=== PATIENT | female | born 1985 | race Caucasian/White ===

== ENCOUNTER 2021-10-18 18:01 | Inpatient (IN) | payer OTHER ==
[~2021-10-18] VITALS: Ht 165.1 cm; Wt 56.7 kg
--- NOTE | 2021-10-18 18:10 | NUR ---
BIB RA 41 C/O UPPER ABDOMINAL PAIN, NAUSEA AND DIARRHEA X 1 DAY. AAOX4, BREATHING EVEN AND UNLABORED, PULSES 2+ BILATERALLY. HANDS COLD TO TOUCH. ON MONITOR. VS STABLE.
[2021-10-18] MEDS ORDERED: PANTOPRAZOLE 40 MG VIAL ONE (18:27)
[2021-10-18] MEDS ORDERED: ONDANSETRON HCL/PF 4 MG/2 ML VIAL ONE (18:27)
[2021-10-18] MEDS ORDERED: PANTOPRAZOLE 40 MG VIAL IV ONE (18:30)
[2021-10-18] MEDS ORDERED: IV NS 0.9% 1,000 ML BAG IV ONE ×2 (18:30→20:00)
[2021-10-18] MEDS ORDERED: ONDANSETRON HCL/PF 4 MG/2 ML VIAL IVP ONE (18:30)
[2021-10-18 19:58] LABS: BASOPHILS # (AUTO) 0.1 K/uL (0.0-0.2); BASOPHILS % (AUTO) 0.6 % (0.0-2.0); EOSINOPHILS % (AUTO) 0.1 % (0.0-6.0); LYMPHOCYTES # (AUTO) 3.9 K/uL (0.8-4.8); MONOCYTES # (AUTO) 0.3 K/uL (0.1-1.30); MONOCYTES % (AUTO) 2.9 % (2.0-12.0); NEUTROPHILS # (AUTO) 5.7 K/uL (1.8-8.9); NEUTROPHILS % (AUTO) 57.4 % (43.0-81.0); PLATELET COUNT (AUTO) 121 K/uL (150-450)
[2021-10-18 20:14] LABS: RED BLOOD CELL COUNT(AUTO) 4.67 MIL/uL (4.0-5.2)
[2021-10-18 20:15] LABS: HEMATOCRIT 52 % (33-45); HEMOGLOBIN 16.8 g/dL (11.5-14.8); MEAN CORPUSCULAR HGB CONC 32 g/dl (31.0-36.0); MEAN CORPUSCULAR VOLUME 112 fL (82-100)
--- NOTE | 2021-10-18 20:20 | NUR ---
URINE COLLECTED AND SENT TO LAB
[2021-10-18 20:34] LABS: BAND % (MANUAL) 1 % (0.0-5.0); NEUTROPHILS % (MANUAL) 85 (42-76)
[2021-10-18 20:35] LABS: LYMPHOCYTES % (MANUAL) 11 % (16-48); MONOCYTES % (MANUAL) 3 % (0-11.0)
[2021-10-18 20:44] LABS: BILIRUBIN,URINE SMALL (NEGATIVE); COLOR,URINE AMBER (YELLOW); LEUKOCYTE ESTERASE ,URINE NEGATIVE (NEGATIVE); NITRITE, URINE NEGATIVE (NEGATIVE); PH,URINE 5.5 (5.0-8.0); PROTEIN,URINE 100 mg/dl (NEGATIVE); UGLUCOSE NEGATIVE (NEGATIVE)
[2021-10-18 20:52] LABS: CALCIUM, SERUM 7.1 mg/dL (8.5-10.1); CHLORIDE 91 mmol/L (98-107); CREATININE 1.5 mg/dL (0.6-1.3); GLUCOSE 224 mg/dL (74-106); SODIUM SERUM 132 mmol/L (136-145); UREA NITROGEN, BLOOD 14 mg/dL (7-18)
[2021-10-18 20:55] LABS: POTASSIUM 2.8 mmol/L (3.5-5.1)
--- NOTE | 2021-10-18 20:55 | NUR ---
CRITICAL LAB K+ 2.8, BICARB 6.0
[2021-10-18 20:57] LABS: CARBON DIOXIDE 6 mmol/L (21-32)
[2021-10-18 21:00] LABS: BACTERIA,URINE Many /HPF (None Seen); SQUAMOUS EPITHELIAL CELL,UR Few /HPF (None Seen)
[2021-10-18] MEDS ORDERED: CEFTRIAXONE 1GM BAG (ER ONLY) 50 ML IV ONE (21:18)
[2021-10-18] MEDS ORDERED: IV PREMIX D5 1/2NS + KCL 1,000 ML IV ONE ×2 (21:23→21:30)
[2021-10-18] MEDS ORDERED: CEFTRIAXONE 1GM BAG (ER ONLY) 1 GM/50 ML PIGGYBACK IV ONE (21:30)
[2021-10-18] MEDS ORDERED: SODIUM BICARBONATE SYR 100 MEQ in IV D5W 1,000 ML IV ONE (21:30)
[2021-10-18] MEDS ORDERED: SODIUM BICARBONATE SYR 50 MEQ/50 ML DISP.SYRIN ONE (21:31)
[2021-10-18] MEDS ORDERED: ZOLPIDEM TARTRATE 5 MG TABLET PO PRN (22:00)
[2021-10-18] MEDS ORDERED: MORPHINE SULFATE INJ 4 MG/ML DISP.SYRIN IV ONE (22:00)
[2021-10-18] MEDS ORDERED: MAGNESIUM HYDROXIDE 30 ML UDC PO PRN (22:00)
[2021-10-18] MEDS ORDERED: ONDANSETRON HCL/PF 4 MG/2 ML VIAL IVP PRN (22:00)
[2021-10-18] MEDS ORDERED: IV NS 0.9% 1,000 ML IV PRN (22:00)
[2021-10-18] MEDS ORDERED: HYDROCODONE/APAP 10/325MG TABLET PO PRN (22:00)
[2021-10-18] MEDS ORDERED: Z GUARD REMEDY 4 OZ OINT TP PRN (22:00)
[2021-10-18] MEDS ORDERED: MAG HYDROX/AL HYDROX/SIMETH 30 ML UDC PO PRN (22:00)
[2021-10-18 22:50] LABS: BILIRUBIN,DIRECT 1.1 mg/dL (0.0-0.2); BILIRUBIN,TOTAL 1.6 mg/dL (0.2-1.0); MAGNESIUM 1.6 mg/dL (1.8-2.4); PHOSPHORUS 5.5 mg/dL (2.5-4.9); TOTAL PROTEIN, SERUM 5.9 g/dL (6.4-8.2)
[2021-10-18] MEDS ORDERED: MORPHINE SULFATE INJ 2 MG/ML DISP.SYRIN ONE (22:58)
[2021-10-18] MEDS ORDERED: LORAZEPAM INJ 2 MG/ML VIAL IV PRN (23:00)
--- NOTE | 2021-10-18 23:29 | NUR ---
BED GIVEN 308-2
--- NOTE | 2021-10-18 23:48 | NUR ---
REPORT GIVEN TO KAMRYN
--- NOTE | 2021-10-19 00:03 | NUR ---
ROOM 326-2
[2021-10-19 00:30] VITALS: BP 94/74
--- NOTE | 2021-10-19 00:30 | NUR ---
GERMAN TUTOR NOTES PT RECEIVING SODIUM BICARB DRIP, STARTED IN ER; PT TOLERATING FLUIDS WELL; WILL CONT TO MONITOR
--- NOTE | 2021-10-19 00:30 | NUR ---
YOLK SPRAY DRIERBORING INSPECTOR NOTES PT ARRIVED TO UNIT VIA CUONG, ACCOMPANIED BY 2 ER STAFF; PT A/OX1-2, PT IS CONFUSED; BLOOD ALCOHOL LEVEL 288,PATIENT COMPLAINING OF ABDOMINAL PAIN; PT AMBULATED TO BATHROOM WITH UNSTEADY GAIT, ASSISTED TO RESTROOM; PT VITAL SIGNS TAKEN; BELONGINGS CHECKED; SKIN ASSESSMENT DONE, SKIN INTACT; PT IS POOR HISTORIAN OF MEDICAL HX D/T ALTERED MENTAL STATUS; CHARGE NURSE AWARE; PER ER, PT DOES NOT WANT COVID VAX AND UNABLE TO OBTAIN SOME INFORMATION D/T MENTAL STATUS; L FA #22G INTACT, TOLERATING IVF WELL; NO S/S OF REDNESS OR INFILTRATION; PT ORIENTED TO STAFF AND UNIT, PT FALLING ASLEEP; BUT EASILY AROUSABLE; SAFETY PRECAUTIONS IMPLEMENTED; BED LOCKED IN LOW POSITION; SIDE RAILSX3, CALL LIGHT WITHIN REACH; WILL CONT TO MONITOR. Addendum: 10/19/21 at 0231 by KIM ABBOTT RN TELE MONITOR READS SINUS TACHY 115BPM
--- NOTE | 2021-10-19 00:33 | NUR ---
PT TRANSPORTED TO ROOM 326 ON DESK PENS ASSEMBLER PER ACLS
[2021-10-19 01:00] VITALS: BP 94/74
[2021-10-19] MEDS ORDERED: Magnesium 1GM/D5W 100ML PREMIX 100 ML IV SCH ×2 (01:00→10:00)
--- NOTE | 2021-10-19 01:00 | NUR ---
MACHINE OPERATOR HOP PICKER NOTES PT DOES NOT WANT TO REMOVE CLOTHING TO CHANGE INTO PT GOWN; PT DROWSY AND CONTINUOUSLY NODDING HEAD WHEN ASKED QUESTIONS; PERSISTENT ON WANTING WATER; PT RE-EDUCATED ON NPO STATUS, PT CONFUSED KEEPS ASKING FOR WATER; CHARGE NURSE AWARE; WILL CONT TO MONITOR, WILL INFORM DAY SHIFT REGARDING PT NOT WANTING TO BE IN PT GOWN
--- NOTE | 2021-10-19 01:30 | NUR ---
DIRECTOR OF ANNUAL GIVING NOTES R AC #20G ESTABLISHED; FLUSHING WELL;
[2021-10-19 04:00] VITALS: BP 118/75
--- NOTE | 2021-10-19 06:47 | NUR ---
SENIOR DESIGNER/ART DIRECTOR CLOSING NOTES PT SLEEPING IN BED, A/OX1-2, PT IS CONFUSED; CANADIAN SPEAKING; PT SLEEPING IN BED COMFORTABLY, TOLERATING ROOM AIR WELL; SATTING 98-100%; L FA #22G INTACT, TOLERATING IVF WELL; R AC #20G, INTACT AND PATENT; NO S/S OF REDNESS OR INFILTRATION; PT ORIENTED TO STAFF AND UNIT, ALL NEEDS RENDERED; SAFETY PRECAUTIONS IMPLEMENTED; BED LOCKED IN LOW POSITION; SIDE RAILSX3, CALL LIGHT WITHIN REACH; WILL ENDORSE CONTINUITY OF CARE TO ONCOMING SHIFT Addendum: 10/19/21 at 0649 by KIM ABBOTT RN TELE MONITOR READS SINUS TACHY 110 BPM
--- NOTE | 2021-10-19 07:30 | NUR ---
CAP COVERER OPENING NOTES RECEIVED PATIENT SLEEPING IN BED, A/OX2, NOTED WITH PERIODS OF CONFUSION; ALGERIAN SPEAKING; TOLERATING ROOM AIR WELL; L FA #22G INTACT, TOLERATING IVF WELL; R AC #20G, INTACT AND PATENT; NO S/S OF REDNESS OR INFILTRATION; ON TELE READING SHOWING ST HR AT 114. SAFETY PRECAUTIONS IMPLEMENTED; BED LOCKED IN LOW POSITION; SIDE RAILSX3, CALL LIGHT WITHIN REACH; WILL CONTINUE TO MONITOR PATIENT ACCORDINGLY.
[2021-10-19 08:00] VITALS: BP 98/64
[2021-10-19] MEDS ORDERED: Sodium Bicarbonate 100 MEQ in IV NS 0.9% 1,000 ML IV SCH (08:00)
[2021-10-19] MEDS ORDERED: PANTOPRAZOLE 40 MG VIAL IV SCH (09:00)
[2021-10-19 09:39] LABS: ALBUMIN 2.1 g/dL (3.4-5.0); BILIRUBIN,DIRECT 0.9 mg/dL (0.0-0.2); BILIRUBIN,TOTAL 2.7 mg/dL (0.2-1.0); CALCIUM, SERUM 6.3 mg/dL (8.5-10.1); CREATININE 0.8 mg/dL (0.6-1.3); MAGNESIUM 1.6 mg/dL (1.8-2.4); PHOSPHORUS 1.8 mg/dL (2.5-4.9); TOTAL PROTEIN, SERUM 6.1 g/dL (6.4-8.2)
[2021-10-19 09:47] LABS: BASOPHILS # (AUTO) 0.1 K/uL (0.0-0.2); BASOPHILS % (AUTO) 0.7 % (0.0-2.0); EOSINOPHILS % (AUTO) 0.2 % (0.0-6.0); HEMATOCRIT 36 % (33-45); HEMOGLOBIN 11.8 g/dL (11.5-14.8); LYMPHOCYTES # (AUTO) 1.6 K/uL (0.8-4.8); LYMPHOCYTES % (AUTO) 20.4 % (20.0-44.0); MEAN CORPUSCULAR HGB CONC 33 g/dl (31.0-36.0); MEAN CORPUSCULAR VOLUME 110 fL (82-100); MONOCYTES # (AUTO) 0.3 K/uL (0.1-1.30); MONOCYTES % (AUTO) 4.1 % (2.0-12.0); NEUTROPHILS # (AUTO) 5.9 K/uL (1.8-8.9); NEUTROPHILS % (AUTO) 74.6 % (43.0-81.0); PLATELET COUNT (AUTO) 61 K/uL (150-450); RED BLOOD CELL COUNT(AUTO) 3.29 MIL/uL (4.0-5.2); WHITE BLOOD COUNT (AUTO) 7.8 K/uL (4.3-11.0)
[2021-10-19] MEDS ORDERED: LORAZEPAM INJ 2 MG/ML VIAL IV PRN (10:00)
[2021-10-19 10:42] LABS: POTASSIUM 2.7 mmol/L (3.5-5.1)
[2021-10-19] MEDS ORDERED: POTASSIUM CHLORIDE 20 MEQ TAB.PRT.SR PO ONE ×2 (11:00→15:30)
--- NOTE | 2021-10-19 11:09 | NUR ---
RN NOTES CRITICAL RESULT OF POTASSIUM 2.7, CO2 9. RELAYED TO DR. VARELA. WITH ORDERS MADE AND CARRIED OUT.
[2021-10-19] MEDS ORDERED: K PHOS NEUTRAL 250 MG TABLET PO ONE (11:30)
--- NOTE | 2021-10-19 14:25 | NUR ---
RN NOTES RELAYED LAB RESULTS TO DR. VARELA WITH ORDERS MADE AND CARRIED OUT.
[2021-10-19 14:49] LABS: CREATININE 0.6 mg/dL (0.6-1.3); POTASSIUM 3.2 mmol/L (3.5-5.1)
[2021-10-19] MEDS: IV NS 0.9% 1,000 ML IV PRN (15:12)
[2021-10-19] MEDS: CHLORDIAZEPOXIDE HCL 25 MG CAPSULE PO SCH (16:27)
--- NOTE | 2021-10-19 18:38 | NUR ---
RN CLOSING NOTES PATIENT SLEEPING IN BED, A/OX2, NOTED WITH PERIODS OF CONFUSION; FRENCH SPEAKING; TOLERATING ROOM AIR WELL; L FA #22G INTACT, ONGOING NS X 125 CC/HR, INFUSING WELL, NO S/SX OF INFILTRATION NOTED; R AC #20G, INTACT AND PATENT; NO S/S OF REDNESS OR INFILTRATION; SAFETY PRECAUTIONS IMPLEMENTED; BED LOCKED IN LOW POSITION; SIDE RAILSX3, CALL LIGHT WITHIN REACH; ALL NEEDS ATTENDED AND MET, DUE MEDS GIVEN ORDERED. WILL ENDORSE TO ONCOMING SHIFT FOR OSVALDO.
--- NOTE | 2021-10-19 19:45 | NUR ---
RN OPENING NOTES RECEIVED PATIENT IN BED A/OX2,PERIOD OF CONFUSION MALAYSIAN SPEAKING ON ROOM AIR MARY WELL. NO SIGN SOB/DISTRESS NOTED.LFA #22G AND RAC #20G, INTACT AND PATENT. SAFETY MEASURE IMPLEMENTED; BED LOCKED IN LOW POSITION; SIDE RAILSX3 UP.CALL LIGHT WITHIN REACH; WILL CONTINUE TO MONITOR.
[2021-10-19 20:00] VITALS: BP 96/70
[2021-10-19] MEDS: CEFTRIAXONE 1 G in IV D5W 50 ML IV SCH (20:38)
[2021-10-19] MEDS: MUPIROCIN OINT 2% 22 GM TUBE NS SCH (20:48)
[2021-10-20] MEDS: IV NS 0.9% 1,000 ML IV PRN ×2 (00:20→10:44)
--- NOTE | 2021-10-20 05:50 | NUR ---
RN NOTES PT COMPLAINED OF STOMACH PAIN 02/01.PRN NORCO 10/325 MG 1TAB GIVEN.NO SIGN A/R NOTED.
--- NOTE | 2021-10-20 06:44 | NUR ---
RN CLOSING NOTES PATIENT SLEEPING IN BED A/OX3 VINCENTIAN SPEAKING. ROOM AIR MARY WELL.NO SIGN SOB DISTRESS NOTED.LFA #22G AND RAC 220G.INTACT/PATNT. SAFETY PRECAUTIONS IMPLEMENTED; BED LOCKED IN LOW POSITION. SIDE RAILSX3, CALL LIGHT WITHIN REACH.WILL ENDORSE TO ONCOMING SHIFT.
[2021-10-20 07:40] LABS: CALCIUM, SERUM 6.7 mg/dL (8.5-10.1); CREATININE 0.6 mg/dL (0.6-1.3); MAGNESIUM 2.1 mg/dL (1.8-2.4); PHOSPHORUS 1.3 mg/dL (2.5-4.9); POTASSIUM 4.3 mmol/L (3.5-5.1)
--- NOTE | 2021-10-20 07:49 | NUR ---
MS RN OPENING NOTE Patient in bed, asleep. A/O x 2-3. On room air, breathing evenly and unlabored. No SOB or s/s of distress noted. IV access on RAC #20 infusing NS at 125 ml/hr and LFA #22 SL intact and patent. Safety precautions in place: bed in low, locked position; siderails up x 2; call light within reach. Will continue to monitor.
[2021-10-20 08:00] VITALS: BP 97/69
[2021-10-20 08:14] LABS: BASOPHILS % (AUTO) 0.3 % (0.0-2.0); EOSINOPHILS % (AUTO) 0.8 % (0.0-6.0); HEMATOCRIT 34 % (33-45); HEMOGLOBIN 11.8 g/dL (11.5-14.8); LYMPHOCYTES # (AUTO) 1.1 K/uL (0.8-4.8); LYMPHOCYTES % (AUTO) 16.7 % (20.0-44.0); MEAN CORPUSCULAR HGB CONC 35 g/dl (31.0-36.0); MEAN CORPUSCULAR VOLUME 109 fL (82-100); MONOCYTES # (AUTO) 0.3 K/uL (0.1-1.30); MONOCYTES % (AUTO) 5.4 % (2.0-12.0); NEUTROPHILS # (AUTO) 4.8 K/uL (1.8-8.9); NEUTROPHILS % (AUTO) 76.8 % (43.0-81.0); PLATELET COUNT (AUTO) 163 K/uL (150-450); RED BLOOD CELL COUNT(AUTO) 3.14 MIL/uL (4.0-5.2); WHITE BLOOD COUNT (AUTO) 6.3 K/uL (4.3-11.0)
[2021-10-20] MEDS: CHLORDIAZEPOXIDE HCL 25 MG CAPSULE PO SCH ×2 (08:44→16:37)
[2021-10-20] MEDS: FOLIC ACID 1 MG TABLET PO SCH (08:44)
[2021-10-20] MEDS: THIAMINE HCL 100 MG TABLET PO SCH (08:44)
[2021-10-20] MEDS: PANTOPRAZOLE 40 MG TABLET.DR PO SCH (08:44)
[2021-10-20] MEDS: MUPIROCIN OINT 2% 22 GM TUBE NS SCH ×2 (08:44→21:01)
[2021-10-20] MEDS ORDERED: K PHOS NEUTRAL 250 MG TABLET PO ONE (10:00)
[2021-10-20] MEDS: SUCRALFATE 1 G TABLET PO SCH ×4 (10:39→21:01)
[2021-10-20 11:25] VITALS: BP 132/77
[2021-10-20 11:43] LABS: LYMPHOCYTES % (MANUAL) 33 % (16-48); MONOCYTES % (MANUAL) 1 % (0-11.0); NEUTROPHILS % (MANUAL) 64 (42-76); REACTIVE LYMPHOCYTES 2 % (0-0)
--- NOTE | 2021-10-20 15:00 | NUR ---
RN NOTE Patient's SPO2 is at 80-81% on room air. O2 given at [address] Serrato notified and ordered to stop IV fluid for now and ordered a CXR. Addendum: 10/20/21 at 1855 by LASHA ROSS RN ADD: Patient denies any SOB or discomfort at this time.
[2021-10-20 16:00] VITALS: BP 112/76
--- NOTE | 2021-10-20 18:55 | NUR ---
MS RN CLOSING NOTE Patient in bed, resting. A/O x 2-3. On room air, breathing evenly and unlabored. No SOB or s/s of distress noted. IV access on RAC #20 and LFA #22 SL, both intact and patent. All needs attended to. Due meds given. Safety precautions maintained: bed in low, locked position; siderails up x 2; call light within reach. Will endorse to weight shifter nurse for OSVALDO.
--- NOTE | 2021-10-20 19:33 | NUR ---
RN OPENING NOTES RECEIVED PATIENT IN BED A/OX2,PERIOD OF CONFUSION FRENCH SPEAKING ON ROOM AIR MARY WELL. NO SIGN SOB/DISTRESS NOTED.LFA #22G AND RAC #20G, INTACT AND PATENT. SAFETY MEASURE IMPLEMENTED; BED LOCKED IN LOW POSITION; SIDE RAILSX3 UP.CALL LIGHT WITHIN REACH; WILL CONTINUE TO MONITOR.
[2021-10-20 20:00] VITALS: BP 109/68
[2021-10-20] MEDS: CEFTRIAXONE 1 G in IV D5W 50 ML IV SCH (20:52)
[2021-10-20] MEDS: ACETAMINOPHEN 325 MG TABLET PO PRN (21:01)
[2021-10-20] MEDS: K PHOS NEUTRAL 250 MG TABLET PO SCH (23:17)
--- NOTE | 2021-10-20 23:45 | NUR ---
RN NOTES CHEST XRAY WAS RESULTED -GAGE BRO -FIRST RESPONDER MADE AWARE
[2021-10-21] VITALS: BP 120/89
[2021-10-21] MEDS: K PHOS NEUTRAL 250 MG TABLET PO SCH ×4 (06:00→23:06)
--- NOTE | 2021-10-21 06:35 | NUR ---
MS RN CLOSING NOTE Patient in bed, resting. A/O x 2-3. On room air, breathing evenly and unlabored. No SOB or s/s of distress noted. IV access on RAC #20 and LFA #22 SL, both intact and patent.0622 pt was pick from OR for EGD procedure.ROOM CHANGE PT from room #326-2 going to room #324-1.will endorse to next shift.
[2021-10-21 06:48] LABS: ALBUMIN 1.8 g/dL (3.4-5.0); BILIRUBIN,DIRECT 2.1 mg/dL (0.0-0.2); BILIRUBIN,TOTAL 3.5 mg/dL (0.2-1.0); CALCIUM, SERUM 7.3 mg/dL (8.5-10.1); CREATININE 0.7 mg/dL (0.6-1.3); MAGNESIUM 1.8 mg/dL (1.8-2.4); PHOSPHORUS 2.1 mg/dL (2.5-4.9); POTASSIUM 2.9 mmol/L (3.5-5.1); TOTAL PROTEIN, SERUM 5.7 g/dL (6.4-8.2)
[2021-10-21 06:56] LABS: BASOPHILS % (AUTO) 0.3 % (0.0-2.0); HEMATOCRIT 34 % (33-45); HEMOGLOBIN 11.5 g/dL (11.5-14.8); LYMPHOCYTES # (AUTO) 1.8 K/uL (0.8-4.8); LYMPHOCYTES % (AUTO) 29.7 % (20.0-44.0); MEAN CORPUSCULAR HGB CONC 34 g/dl (31.0-36.0); MEAN CORPUSCULAR VOLUME 109 fL (82-100); MONOCYTES # (AUTO) 0.2 K/uL (0.1-1.30); MONOCYTES % (AUTO) 3.9 % (2.0-12.0); NEUTROPHILS # (AUTO) 4.1 K/uL (1.8-8.9); NEUTROPHILS % (AUTO) 65.1 % (43.0-81.0); PLATELET COUNT (AUTO) 55 K/uL (150-450); RED BLOOD CELL COUNT(AUTO) 3.13 MIL/uL (4.0-5.2); WHITE BLOOD COUNT (AUTO) 6.2 K/uL (4.3-11.0)
[2021-10-21 08:15] VITALS: BP 95/71
--- NOTE | 2021-10-21 08:15 | NUR ---
RN MS NOTES RECEIVED PT FROM O.R. STAFF VIA BED, PT IS AWAKE, ALERT AND ORIENTED, NO COMPLAINT OF PAIN, VITALS TAKEN AND RECORDED, NO COMPLAINT OF SOB, POST OP ORDERS RECEIVED, NOTED AND CARRIED OUT, WILL CONTINUE TO MONITOR. VS BP 95/71 HR 114 T 98.4 O2 SAT 95% AT 4LPM VIA N/C.
[2021-10-21 08:40] LABS: BAND % (MANUAL) 1 % (0.0-5.0); LYMPHOCYTES % (MANUAL) 27 % (16-48); MONOCYTES % (MANUAL) 4 % (0-11.0); NEUTROPHILS % (MANUAL) 68 (42-76)
[2021-10-21] MEDS: SUCRALFATE 1 G TABLET PO SCH ×4 (08:50→21:37)
[2021-10-21] MEDS: THIAMINE HCL 100 MG TABLET PO SCH (08:50)
[2021-10-21] MEDS: PANTOPRAZOLE 40 MG TABLET.DR PO SCH (08:50)
[2021-10-21] MEDS: CHLORDIAZEPOXIDE HCL 25 MG CAPSULE PO SCH ×2 (08:50→17:57)
[2021-10-21] MEDS: FOLIC ACID 1 MG TABLET PO SCH (08:50)
[2021-10-21 09:00] VITALS: BP 95/71
[2021-10-21] MEDS: MUPIROCIN OINT 2% 22 GM TUBE NS SCH ×2 (09:19→20:54)
[2021-10-21] MEDS ORDERED: POTASSIUM CHLORIDE 20 MEQ TAB.PRT.SR PO SCH (10:00)
[2021-10-21] MEDS: SUCRALFATE 1 G/10 ML UDC GT SCH ×3 (11:44→21:37)
--- NOTE | 2021-10-21 12:40 | NUR ---
SS Note: SS received consult for ETOH. Pt. Is a 35-year-old female who demonstrates adequate insight to the reason for hospitalization. Per EMR, she came in for abdominal pain due to alcohol intake. Pt. was oriented x3, alert, and cooperative. During interview, pt. was capable of following directions and appeared unkempt. Pt.s speech was at a normal rate and pt.s mood was elevated. Pt. reported no hx of mental health, denies suicidal ideation, or homicidal ideation. Pt. denies auditory hallucinations, visual hallucinations, paranoia, or delusions. SW explored pt.s living situation. Pt. stated that she drinks alcohol everyday [1 beer a day]. Pt. has never been to rehab, SW suggested rehab and pt. rejected. Pt. was very short with her answers. Per pt., she lives with her friend, pt. can go back upon discharge. Plan: SW provided available resources and pt. accepted. Upon discharge, per pt., she will return to home with her friend. Resources Provided: Substance Abuse resources: [facility] Substance Abuse Self-Helpline ([facility]) ; [facility] [address] [facility]. [place] [id number] ; [facility] [address] [facility] [address] [facility] [address] [place] [facility] [id number] ; [facility] [place] [facility] [phone] ; [facility] Treatment [facility] [address] [facility] [address] ; [facility] [address] [facility] [address] ; [facility] Substance Abuse Helpline([facility])-[facility] ; [facility] ; [facility]; [facility] [place]; [facility] [place]; [facility] Hussain Britt; [facility]; [place]; [facility] [place]; [facility], [facility]. Edwige Rodriguez; Alcoholics Anonymous -[facility]; Vivien ; Marijuana Anonymous -[facility]; Narcotics Anonymous www.na.org;
[2021-10-21 16:00] VITALS: BP 88/55
[2021-10-21 17:45] VITALS: BP 110/81
[2021-10-21] MEDS: ACETAMINOPHEN 325 MG TABLET PO PRN (17:58)
--- NOTE | 2021-10-21 18:45 | NUR ---
MS RN CLOSING NOTE PATIENT IN BED, RESTING. A/O X 3. PATIENT IS IN NASAL CANNULA, 3L OF OXYGEN. BREATHING EVENLY AND UNLABORED. IV ACCESS ON RAC 2OG AND LFA 22G SL, CLEAR AND INTACT. PATIENT HAD FEVER (100.7 TEMPERATURE). SHE WAS GIVEN TYLENOL, AND HER TEMPERATURE WENT DOWN TO 98.9. SAFETY PRECAUTIONS IN PLACE: BED IN LOWEST AND LOCKED POSITION, SIDE RAILS UP X 2, AND BRAKES ON. TABLE AND CALL LIGHT WITHIN REACH. WILL ENDORSED TO ONCOMING SHIFT FOR OSVALDO.
--- NOTE | 2021-10-21 19:08 | NUR ---
RN NOTES: RECEIVED AWAKE ON BED, A/OX2-3, SHE WAS CONVERSANT , WATCHING YAKUT MOVIE IN HER PHONE, ASKING FOR SOMETHING TO SLEEP TO BE GIVEN LATER ON,PER ENDORSEMENT SHE IS TAKING A NAP IN BETWEEN.SHE IS REMOVING HER O2 INHALATION, RN EXPLAINED TO HER SHE NEEDS IT, IV CANNULA ON THE LFAG#22, SHE WAS FEVERISH IN THE MORNING SHIFT, GIVEN TYLENOL, NOW LATEST TEMP-98.9, ON ROCEPHIN ATB, WILL CONTINUE TO MONITOR, ORIENTED TO UNIT AND STAFF, FALL, SAFETY AND ASPIRATION PRECAUTION OBSERVED.
[2021-10-21 20:00] VITALS: BP 85/62
[2021-10-21] MEDS: CEFTRIAXONE 1 G in IV D5W 50 ML IV SCH (20:53)
--- NOTE | 2021-10-21 21:37 | NUR ---
RN NOTES: SUCRALFATE PER G-TUBE NOT GIVEN, PATIENT IS TAKING IT ORALLY. -SHE REQUEST FOR SLEEPING PILL, ANDREEIEN PRN GIVEN.
--- NOTE | 2021-10-21 22:26 | NUR ---
RN NOTES: IV CANNULA WAS ACCIDENTALLY OUT, AGREED FOR REINSERTION AT 2200, IV CANNULA REINSERTED ON THE RH G#22, 1 ATTEMPT WITH GOOD BACK FLOW.ATB/IV COMPLETED GIVEN.
--- NOTE | 2021-10-21 23:00 | NUR ---
RN NOTES: ABLE TO SLEEP AND REST.KEPT ON CLOSE WATCH, SHE PUT ON HER O2 INHALATION.MONITORED.
[2021-10-22] MEDS: K PHOS NEUTRAL 250 MG TABLET PO SCH ×2 (05:17→12:18)
[2021-10-22 06:25] LABS: BASOPHILS % (AUTO) 0.4 % (0.0-2.0); EOSINOPHILS % (AUTO) 1.1 % (0.0-6.0); HEMATOCRIT 33 % (33-45); LYMPHOCYTES # (AUTO) 2.1 K/uL (0.8-4.8); LYMPHOCYTES % (AUTO) 32.6 % (20.0-44.0); MEAN CORPUSCULAR HGB CONC 33 g/dl (31.0-36.0); MEAN CORPUSCULAR VOLUME 110 fL (82-100); MONOCYTES # (AUTO) 0.4 K/uL (0.1-1.30); MONOCYTES % (AUTO) 5.7 % (2.0-12.0); NEUTROPHILS # (AUTO) 3.9 K/uL (1.8-8.9); NEUTROPHILS % (AUTO) 60.2 % (43.0-81.0); PLATELET COUNT (AUTO) 58 K/uL (150-450); RED BLOOD CELL COUNT(AUTO) 3.01 MIL/uL (4.0-5.2); WHITE BLOOD COUNT (AUTO) 6.5 K/uL (4.3-11.0)
[2021-10-22 07:00] LABS: CALCIUM, SERUM 7.6 mg/dL (8.5-10.1); CREATININE 0.7 mg/dL (0.6-1.3); MAGNESIUM 1.8 mg/dL (1.8-2.4); PHOSPHORUS 2.7 mg/dL (2.5-4.9); POTASSIUM 2.9 mmol/L (3.5-5.1)
--- NOTE | 2021-10-22 07:30 | NUR ---
RN NOTES: STILL ASLEEP, NO PAIN OR DISCOMFORT IN THE MORNING, CALLS AND NEEDS ATTENDED, FOR LABS IN THE MORNING, NO SOB OR SIGN OF RESPIRATORY DISTRESS SPO2-92% REMIAN ON O2 AT 2L/MIN VIA NC, ENDORSED FOR CONTINUITY OF CARE.
[2021-10-22 08:00] VITALS: BP 119/73
[2021-10-22 08:00] LABS: BAND % (MANUAL) 2 % (0.0-5.0); LYMPHOCYTES % (MANUAL) 29 % (16-48); METAMYELOCYTES % 1 % (0-0); MONOCYTES % (MANUAL) 4 % (0-11.0); MYELOCYTES % 1 % (0-0); NEUTROPHILS % (MANUAL) 63 (42-76)
[2021-10-22] MEDS: SUCRALFATE 1 G/10 ML UDC GT SCH ×2 (08:49→12:18)
[2021-10-22] MEDS: FOLIC ACID 1 MG TABLET PO SCH (08:49)
[2021-10-22] MEDS: PANTOPRAZOLE 40 MG TABLET.DR PO SCH (08:49)
[2021-10-22] MEDS: THIAMINE HCL 100 MG TABLET PO SCH (08:49)
[2021-10-22] MEDS: CHLORDIAZEPOXIDE HCL 25 MG CAPSULE PO SCH (08:49)
[2021-10-22] MEDS: POTASSIUM CHLORIDE 20 MEQ TAB.PRT.SR PO SCH ×3 (08:49→11:01)
[2021-10-22] MEDS: MUPIROCIN OINT 2% 22 GM TUBE NS SCH (09:03)
[2021-10-22] MEDS ORDERED: Thiamine HCL PO (11:11)
[2021-10-22] MEDS ORDERED: PANT40TA2 PO (11:11)
[2021-10-22] MEDS ORDERED: Folic Acid PO (11:11)
[2021-10-22] MEDS ORDERED: MULT-754 PO (11:11)
[2021-10-22] MEDS ORDERED: POTASSIUM CHLORIDE 20 MEQ TAB.PRT.SR PO ONE (14:30)
--- NOTE | 2021-10-22 17:30 | NUR ---
received pt. in am alert and oriented x2-3.vs stable. seems a little forgetful.appetite.given multiple doses of potassium as potassium level low in am.dr. figueroa in and dc order given.waiting for potassium supplements to be given.hep lock out.onsite case manager involved in dc.pt. called friend for discharge brain picker,but no show,so sent home by uber.all papers signed and given rxs.
== END 2021-10-22 17:30 | disposition home or self-care (01) | DRG 896 ==
LOC: ER 18:03 → MED 23:30 → TELE 10-19 01:41 → MED 10-19 09:05
PROVIDERS: ADMIT Nurse Practitioner Acute Care; ATTEND Internal Medicine
PROC: 0DB68ZX Excision of Stomach, Via Natural or Artificial Opening Endoscopic, Diagnostic (ICD-10-PCS; principal; 2021-10-21)
DX: F10.129 Alcohol abuse with intoxication, unspecified (principal); G92.9 Unspecified toxic encephalopathy; K85.90 Acute pancreatitis without necrosis or infection, unspecified; N17.0 Acute kidney failure with tubular necrosis; N39.0 Urinary tract infection, site not specified; E87.2 Acidosis; M62.82 Rhabdomyolysis; I10 Essential (primary) hypertension; Y90.8 Blood alcohol level of 240 mg/100 ml or more; R13.10 Dysphagia, unspecified; Z20.822 Contact with and (suspected) exposure to COVID-19; E87.6 Hypokalemia; B96.89 Other specified bacterial agents as the cause of diseases classified elsewhere; E83.51 Hypocalcemia; K29.70 Gastritis, unspecified, without bleeding; K20.90 Esophagitis, unspecified without bleeding; K70.10 Alcoholic hepatitis without ascites
CPT/HCPCS: 36415; 71045-TC; 80048-TC; 80061-TC; 80076-TC; 81001; 82550-TC; 82553; 82962-TC; 83690-TC; 83735-TC; 84100-TC; 84132-TC; 84703-TC; 85025-TC; 87081-TC; 87086-TC; C9113; C9803; G0378; G0480; J0696; J2060; J2270; J2405; J2704; J3475; J3490; J7030; J7060

== ENCOUNTER 2022-01-07 06:24 | Inpatient (IN) | payer OTHER ==
[~2022-01-07] VITALS: Ht 167.6 cm; Wt 66.2 kg
[~2022-01-07 06:24] MED LIST: Folic Acid PO; MULT-754 PO; PANT40TA2 PO; Thiamine HCL PO
--- NOTE | 2022-01-07 06:45 | NUR ---
PATRIZIA FROM THE STREETS FOR MECHANICAL TRIP AND FALL, ABRASIONS TO FACE -KO ADMITS TO ETOH. C/O LEFT KNEE PAIN. TDAP NOT UTD. PATIENT ALERT AND ORIENTED X3. AMBULATORY WITH NON LABORED BREATHING IN BED 10 ON AWAITING MD BARNES.
[2022-01-07] MEDS ORDERED: IV NS 0.9% 1,000 ML BAG IV ONE (07:00)
[2022-01-07] MEDS ORDERED: LIDOCAINE 2%-EPI 1:100,000 30 ML VIAL TP ONE (07:00)
[2022-01-07] MEDS ORDERED: TDAP [DIPH/PERTUSSIS/TET] 0.5 ML VIAL IM ONE ×2 (07:00→07:20)
--- NOTE | 2022-01-07 07:04 | NUR ---
IV LINE ESTABLISHED, LAC 20G. BLOOD COLLECTED AND SENT TO LAB
--- NOTE | 2022-01-07 07:06 | NUR ---
PT TAKEN TO CT SCAN
--- NOTE | 2022-01-07 07:19 | NUR ---
PT RETURNED FROM CT SCAN, RECONNECTED TO MONITOR
[2022-01-07 07:22] LABS: BASOPHILS % (AUTO) 0.3 % (0.0-2.0); EOSINOPHILS % (AUTO) 0.2 % (0.0-6.0); HEMATOCRIT 43 % (33-45); HEMOGLOBIN 14.4 g/dL (11.5-14.8); LYMPHOCYTES # (AUTO) 0.6 K/uL (0.8-4.8); LYMPHOCYTES % (AUTO) 6.3 % (20.0-44.0); MEAN CORPUSCULAR HGB CONC 34 g/dl (31.0-36.0); MEAN CORPUSCULAR VOLUME 106 fL (82-100); MONOCYTES # (AUTO) 0.4 K/uL (0.1-1.30); MONOCYTES % (AUTO) 4.4 % (2.0-12.0); NEUTROPHILS # (AUTO) 8.9 K/uL (1.8-8.9); NEUTROPHILS % (AUTO) 88.8 % (43.0-81.0); PLATELET COUNT (AUTO) 174 K/uL (150-450); RED BLOOD CELL COUNT(AUTO) 4.02 MIL/uL (4.0-5.2)
--- NOTE | 2022-01-07 07:22 | NUR ---
NICOLA JOSEPH AT BEDSIDE FOR EKG
--- NOTE | 2022-01-07 07:26 | NUR ---
DR JONES AT BEDSIDE FOR WOUND EVAL/TX
--- NOTE | 2022-01-07 07:35 | NUR ---
TDAP GIVEN IM ON L DELTOID.
[2022-01-07 07:42] LABS: CALCIUM, SERUM 8.6 mg/dL (8.5-10.1); CARBON DIOXIDE 20 mmol/L (21-32); CHLORIDE 99 mmol/L (98-107); CREATININE 0.8 mg/dL (0.6-1.3); GLUCOSE 157 mg/dL (74-106); POTASSIUM 3.1 mmol/L (3.5-5.1); SODIUM SERUM 137 mmol/L (136-145); UREA NITROGEN, BLOOD 9 mg/dL (7-18)
[2022-01-07 07:50] LABS: ALANINE AMINOTRANSFERASE 17 U/L (12-78); ALBUMIN 3.7 g/dL (3.4-5.0); ALCOHOL, BLOOD 13 mg/dL (0-0); ALKALINE PHOSPHATASE 83 U/L (46-116); ASPARTATE AMINOTRANSFERASE 132 U/L (15-37); BILIRUBIN,DIRECT 0.3 mg/dL (0.0-0.2); BILIRUBIN,TOTAL 0.6 mg/dL (0.2-1.0); TOTAL PROTEIN, SERUM 8.9 g/dL (6.4-8.2)
[2022-01-07 07:53] LABS: ACETAMINOPHEN < 10 ug/ml (10-30)
[2022-01-07 07:55] LABS: SERUM AMMONIA 23 umol/L (11-32)
[2022-01-07] MEDS ORDERED: CHLORDIAZEPOXIDE HCL 25 MG CAPSULE PO ONE (08:00)
[2022-01-07] MEDS ORDERED: POTASSIUM CHLORIDE 20 MEQ TAB.PRT.SR PO ONE ×2 (08:00→08:02)
[2022-01-07] MEDS ORDERED: CHLORDIAZEPOXIDE HCL 25 MG CAPSULE ONE (08:01)
[2022-01-07 08:27] LABS: MAGNESIUM 1.9 mg/dL (1.8-2.4); PHOSPHORUS 2.8 mg/dL (2.5-4.9)
--- NOTE | 2022-01-07 09:10 | NUR ---
URINE SPECIMEN OBTAINED AND SENT TO LAB
[2022-01-07 09:17] LABS: LYMPHOCYTES % (MANUAL) 11 % (16-48); MONOCYTES % (MANUAL) 2 % (0-11.0); NEUTROPHILS % (MANUAL) 87 (42-76)
--- NOTE | 2022-01-07 09:18 | NUR ---
COVID SWAB SPECIMEN OBTAINED AND SENT TO LAB
[2022-01-07 09:44] LABS: BILIRUBIN,URINE SMALL (NEGATIVE); COLOR,URINE RED (YELLOW); LEUKOCYTE ESTERASE ,URINE NEGATIVE (NEGATIVE); NITRITE, URINE NEGATIVE (NEGATIVE); PROTEIN,URINE 100 mg/dl (NEGATIVE); UGLUCOSE 100 MG/DL mg/dL (NEGATIVE); UROBILINOGEN,URINE 0.2 EU/dL (0.2)
[2022-01-07 10:25] LABS: BACTERIA,URINE Few /HPF (None Seen); RBC,URINE TOO NUMEROUS TO COUN /HPF (0-2); SQUAMOUS EPITHELIAL CELL,UR None Seen /HPF (None Seen); WBC,URINE 0-2 /HPF (0-3)
[2022-01-07] MEDS ORDERED: LORAZEPAM INJ 2 MG/ML VIAL IV PRN (10:30)
[2022-01-07] MEDS ORDERED: MAG HYDROX/AL HYDROX/SIMETH 30 ML UDC PO PRN (10:30)
[2022-01-07] MEDS ORDERED: Z GUARD REMEDY 4 OZ OINT TP PRN (10:30)
[2022-01-07] MEDS ORDERED: MAGNESIUM HYDROXIDE 30 ML UDC PO PRN (10:30)
[2022-01-07] MEDS ORDERED: ACETAMINOPHEN 325 MG TABLET PO PRN (10:30)
[2022-01-07] MEDS ORDERED: ONDANSETRON HCL/PF 4 MG/2 ML VIAL IVP PRN (10:30)
--- NOTE | 2022-01-07 11:12 | NUR ---
TROP [address] JONES AND SHANELL ALEGRIA NP, MADE AWARE.
--- NOTE | 2022-01-07 11:15 | NUR ---
STRAIGHT PIN MAKING MACHINE OPERATOR AT BEDSIDE FOR US
--- NOTE | 2022-01-07 19:51 | NUR ---
RECEIVED PT IN ER BED 10, PT RESTING COMFORTABLY IN BED. CONNECTED TO MONITOR. ADMITS TO FACIAL PAIN 5/10 ON PAIN SCALE, MD AWARE. AWAITING MD ORDERS
--- NOTE | 2022-01-07 19:52 | NUR ---
PT AMBULATED TO BATHROOM, STEADY GAIT NOTED
[2022-01-07] MEDS ORDERED: ACETAMINOPHEN 325 MG TABLET ONE (20:27)
--- NOTE | 2022-01-07 20:32 | NUR ---
PT GOING TO 321-2 PER RN SEED COLLECTOR.
--- NOTE | 2022-01-07 21:27 | NUR ---
REPORT GIVEN TO NA CONCEPCION FOR OSVALDO
[2022-01-07 22:00] VITALS: BP 155/96
[2022-01-07] MEDS ORDERED: ZOLPIDEM TARTRATE 5 MG TABLET PO PRN (22:00)
[2022-01-07 22:15] VITALS: BP 155/96
--- NOTE | 2022-01-07 22:15 | NUR ---
ORTHODONTIC LABORATORY TECHNICIANGAS MAIN FITTER NOTES RECEIVED FROM ER PER CUONG THIS 36 YO FEMALE,A/O X4,BURMESE SPEAKING,ABLE TO UNDERSTAND POLISH,S/P FALL AT HOME DUE TO ETOH ABUSE,SUSTAINED INJURY ON FACE,LACERATION BELOW THE NOSE SUTURED IN ER,ABRASION ON RIGHT CHEEK AND RIGHT CHIN,OPEN TO AIR.ABLE TO AMBULATE WITH STEADY GAIT,WITH SALINE LOCK LEFT AC INTACT AND PATENT.NO KNOWN ALLERGY,WITH KNOWN HISTORY OF BILATERAL BREAST SILICONE IMPLANT,OTHERWISE NO OTHER MEDICAL HISTORY,CALL LIGHT IN REACH,NEEDS ANTICIPATED.
[2022-01-07] MEDS: IV NS 0.9% 1,000 ML IV PRN (23:19)
--- NOTE | 2022-01-07 23:19 | NUR ---
TABLEAU LEAD NOTES SR-62 ON TELE MONITOR,IVF STARTED NS AT 75ML/HR RATE,INFUSING VIA IV PUMP ON LEFT AC.
[2022-01-08] VITALS (8 sets, daily range): BP systolic 129–169; BP diastolic 76–112
--- NOTE | 2022-01-08 01:00 | NUR ---
SHIP CAPTAIN NOTES BP 160/98 TAKEN MANUALLY,IN A LOT OF PAIN,HOSPITALIST TANIA ELENA DNP MADE AWARE,WITH NEW ORDER NOTED AND CARRIED OUT.
[2022-01-08] MEDS ORDERED: HYDROCODONE/APAP 5/325MG TABLET PO PRN (01:30)
--- NOTE | 2022-01-08 06:36 | NUR ---
MS RN NOTES LATEST BP 139/102,HR-76,DENIES PAIN AT THE MOMENT,ASYMPTOMATIC, NO N/V NOTED.ABLE TO SLEEP WITH NORCO IVF INFUSING WELL ON LEFT AC SALINE LOCK,INSTRUCTED BREAKFAST WILL BE HOLD TILL SEEN BY HEART DOCTOR.CALL LIGHT IN REACH,NEEDS ATTENDED.
--- NOTE | 2022-01-08 07:30 | NUR ---
SPECIMEN COLLECTOR OPENING NOTES: RECEIVED PT IN BED AWAKE,CHILEAN SPEAKING BUT ABLE TO SPEAK HEBREW. A/O X3, NO SOB OR CARDIAC DISTRESS NOTED. ON ROOM AIR AND TOLERATING WELL. ON WOOD MOLDER WITH CURRENT READING OF SR @69BPM. NOTED WITH SKIN ISSUES (FACIAL ABRASIONS, SKIN DISCOLORATIONS) NOTED W/ IV ACCESS ON LAC G#20 INFUSING NS @75ML/HR PATENT AND INTACT. DENIES ANY PAIN AT THIS TIME. SAFETY PRECAUTIONS MAINTAINED: BED LOCKED AND IN LOWEST POSITION, SIDE RAILS UP X 2. CALL LIGHT IN EASY REACH FOR HELP. KEPT RESTED AND COMFORTABLE. WILL MONITOR ACCORDINGLY.
[2022-01-08 07:32] LABS: BASOPHILS % (AUTO) 0.5 % (0.0-2.0); EOSINOPHILS % (AUTO) 1.6 % (0.0-6.0); HEMATOCRIT 39 % (33-45); HEMOGLOBIN 13.4 g/dL (11.5-14.8); LYMPHOCYTES # (AUTO) 0.9 K/uL (0.8-4.8); LYMPHOCYTES % (AUTO) 24.2 % (20.0-44.0); MEAN CORPUSCULAR HGB CONC 34 g/dl (31.0-36.0); MEAN CORPUSCULAR VOLUME 105 fL (82-100); MONOCYTES # (AUTO) 0.3 K/uL (0.1-1.30); MONOCYTES % (AUTO) 8.5 % (2.0-12.0); NEUTROPHILS # (AUTO) 2.5 K/uL (1.8-8.9); NEUTROPHILS % (AUTO) 65.2 % (43.0-81.0); PLATELET COUNT (AUTO) 117 K/uL (150-450); RED BLOOD CELL COUNT(AUTO) 3.74 MIL/uL (4.0-5.2); WHITE BLOOD COUNT (AUTO) 3.9 K/uL (4.3-11.0)
[2022-01-08] MEDS: PANTOPRAZOLE 40 MG TABLET.DR PO SCH (07:38)
[2022-01-08 07:46] LABS: CALCIUM, SERUM 8.2 mg/dL (8.5-10.1); CREATININE 0.5 mg/dL (0.6-1.3); PHOSPHORUS 2.9 mg/dL (2.5-4.9); POTASSIUM 3.1 mmol/L (3.5-5.1)
[2022-01-08] MEDS: MULTIVITAMINS,THERAGRAN 1 UDTAB TABLET PO SCH (08:38)
[2022-01-08] MEDS: FOLIC ACID 1 MG TABLET PO SCH (08:38)
[2022-01-08] MEDS: THIAMINE HCL 100 MG TABLET PO SCH (08:38)
[2022-01-08] MEDS: ASPIRIN EC 81 MG TABLET.DR PO SCH (08:38)
--- NOTE | 2022-01-08 09:28 | NUR ---
RN NOTES: RECEIVED A CALL FROM DIOGENES GILL (LAB) TROP LEVEL 239.
[2022-01-08] MEDS ORDERED: POTASSIUM CHLORIDE 20 MEQ TAB.PRT.SR PO SCH (10:30)
--- NOTE | 2022-01-08 11:42 | NUR ---
RN NOTES: RECEIVED CALL FROM DIOGENES (LAB) TROP LEVEL 205, ITS TRENDING DOWN. DR ALEGRIA MADE AWARE.
[2022-01-08] MEDS: IV NS 0.9% 1,000 ML IV PRN (17:36)
--- NOTE | 2022-01-08 18:44 | NUR ---
TELEVISION DIRECTOR CLOSING NOTES: PATIENT IN BED AWAKE,TONGAN SPEAKING BUT ABLE TO SPEAK GAMBIAN. A/O X3, NO SOB OR CARDIAC DISTRESS NOTED. ON ROOM AIR AND TOLERATING WELL. ON COMMISSIONING SPECIALIST WITH CURRENT READING OF SR @69BPM. NOTED WITH SKIN ISSUES (FACIAL ABRASIONS, SKIN DISCOLORATIONS), KEPT DRY AND CLEAN TRUNG. NO EPISODES OF ALCOHOL WITHDRAWAL NOTED. NOTED W/ IV ACCESS ON LAC G#20 INFUSING NS @75ML/HR PATENT AND INTACT. DENIES ANY PAIN AT THIS TIME. SAFETY PRECAUTIONS MAINTAINED: BED LOCKED AND IN LOWEST POSITION, SIDE RAILS UP X 2. CALL LIGHT IN EASY REACH FOR HELP. KEPT RESTED AND COMFORTABLE. ENDORSED TO NOC SHIFT FOR OSVALDO.
--- NOTE | 2022-01-08 19:25 | NUR ---
RN NOTE PT AWAKE IN BED, A/OX4, ABLE TO VERBALIZE ALL NEEDS. DENIES PAIN AT THIS TIME. DENIES N/V. RESPIRATIONS EVEN/UNLABORED. IV ACCESS: L-AC #20G INTACT/PATENT, INFUSING NS @75ML/HR. PT ABLE TO AMBULATE TO BR WITH STEADY GAIT. NO ACUTE DISTRESS NOTED. SAFETY INSTRUCTIONS REINFORCED AND PT VERBALIZED UNDERSTANDING. WILL CONT TO MONITOR.
[2022-01-09] VITALS: BP 169/110
--- NOTE | 2022-01-09 00:13 | NUR ---
RN NOTE PT HAVING HIGH BP, 169/110. REPORTED TO ON-CALL VAZQUEZ COLEMAN DNP, WITH ORDER FOR HYDRALAZINE 10MG IVP Q6H PRN FOR SBP>160
[2022-01-09] MEDS ORDERED: hydrALAZINE HCL IV 20 MG VIAL IV PRN (00:30)
[2022-01-09 04:00] VITALS: BP 137/75
[2022-01-09 06:42] LABS: CALCIUM, SERUM 8.7 mg/dL (8.5-10.1); CREATININE 0.5 mg/dL (0.6-1.3); MAGNESIUM 2.2 mg/dL (1.8-2.4); PHOSPHORUS 3.3 mg/dL (2.5-4.9); POTASSIUM 3.2 mmol/L (3.5-5.1)
[2022-01-09 06:45] LABS: BASOPHILS % (AUTO) 0.2 % (0.0-2.0); EOSINOPHILS % (AUTO) 0.7 % (0.0-6.0); HEMATOCRIT 40 % (33-45); HEMOGLOBIN 13.7 g/dL (11.5-14.8); LYMPHOCYTES % (AUTO) 20.1 % (20.0-44.0); MEAN CORPUSCULAR HGB CONC 34 g/dl (31.0-36.0); MEAN CORPUSCULAR VOLUME 105 fL (82-100); MONOCYTES # (AUTO) 0.3 K/uL (0.1-1.30); NEUTROPHILS # (AUTO) 3.4 K/uL (1.8-8.9); PLATELET COUNT (AUTO) 113 K/uL (150-450); RED BLOOD CELL COUNT(AUTO) 3.85 MIL/uL (4.0-5.2); WHITE BLOOD COUNT (AUTO) 4.8 K/uL (4.3-11.0)
--- NOTE | 2022-01-09 06:50 | NUR ---
RN NOTE PT RESTING IN BED, EASILY AROUSABLE TO STIMULI. NO C/O PAIN AT THIS TIME. NO SOB. AMBULATES TO BR AD CASANDRA, WITH STEADY GAIT. PT SLEPT WELL DURING THE NIGHT. NO WITHDRAWAL S/SX NOTED. TELE MONITOR READING SR, HR 98, WITH PEAKED P-WAVE. NO ACUTE DISTRESS NOTED. ALL NEEDS ATTENDED TO. SAFETY MEASURES MAINTAINED.
[2022-01-09] MEDS: PANTOPRAZOLE 40 MG TABLET.DR PO SCH (07:39)
--- NOTE | 2022-01-09 08:07 | NUR ---
RN OPENING NOTE RECEIVED PT IN BED AWAKE, A/O X3, NO SOB OR CARDIAC DISTRESS NOTED. ON ROOM AIR AND TOLERATING WELL. ON CARDIAC DIET , SR 70. NOTED WITH SKIN ISSUES (FACIAL ABRASIONS, SKIN DISCOLORATIONS) IV ACCESS ON LAC G#20 INFUSING NS @75ML/HR PATENT AND INTACT. DENIES ANY PAIN AT THIS TIME. SAFETY PRECAUTIONS MAINTAINED: BED LOCKED AND IN LOWEST POSITION, SIDE RAILS UP X 2. CALL LIGHT IN EASY REACH FOR HELP. KEPT RESTED AND COMFORTABLE. WILL MONITOR ACCORDINGLY.
[2022-01-09 08:11] VITALS: BP 139/108
[2022-01-09] MEDS: MULTIVITAMINS,THERAGRAN 1 UDTAB TABLET PO SCH (08:28)
[2022-01-09] MEDS: ASPIRIN EC 81 MG TABLET.DR PO SCH (08:28)
[2022-01-09] MEDS: FOLIC ACID 1 MG TABLET PO SCH (08:28)
[2022-01-09] MEDS: THIAMINE HCL 100 MG TABLET PO SCH (08:28)
[2022-01-09] MEDS ORDERED: POTASSIUM CHLORIDE 20 MEQ TAB.PRT.SR PO ONE (09:00)
--- NOTE | 2022-01-09 09:38 | NUR ---
SS consult requested over the weekend for alcohol abuse. SW will follow up at a later time.
--- NOTE | 2022-01-09 10:29 | NUR ---
SS consult: SS Consult requested for alcohol abuse. The pt. is a 36-year-old [place] female patient who was [facility] as a direct admit from [facility]. Upon SS consult, the pt. is Alert & Oriented x 4 and makes good eye contact. The pt. appears unkempt and remains calm & cooperative throughout interview. Pt. denies SI/HI and denies hallucinations. The pt.s thought process and thought content are WNL. The pt. has Depressed mood & flat affect. Pt.s speech is WNL. SW explored pt.s living situation. Patient stated that she lives with her friend, Diana at [[address] [facility]. [place] [id number]; [phone]]. SW explored pt.s mental health Hx. Patient denies any diagnosis or taking any medication for her mental health. SW explored pt.s drug & ETOH use. Pt. denies any drug use. However, pt. tested positive for Meth and Cocaine. Pt. states she has been drinking beer daily for the past year. This social media senior associate provided support with motivational interviewing, along with education regarding alcohol & drug dependence, brief intervention and referral to treatment. Patient refused referral to a rehab but accepted addiction resources and stated she would join a support group and use resources to seek treatment. Per pt. she is ambulatory and independent with all her ADLs. SW explored pt.s support system. Pt. states she has a friend, Diana. Plan: SW provided pt. with addiction resources and pt. accepted them. Pt. stated her friend, Diana can pick her up and return home[[address] [facility]. [facility] [address]; [phone]] with her when ready for discharge. ADDICTION RESOURCES For Drugs and Alcohol [facility] sober living Referrals For Rehabilitation once sober Address:[address] [place] [id number] [facility] [address] [place] [address] Detox/residential [facility] Substance Abuse Helpline ([facility]) Outpatient, residential treatment, recovery support for youth/adults [facility] www.[employer] Teen programs for drug/alcohol education and support Marie [place]. Program for adults, sliding scale provides support and education [facility] www.[facility] systemation.org [place]; Detox/residential treatment programs; transition to sober living [facility] www.cri-help.org [place]; Outpatient and residential treatment programs; transition to sober living [facility] TEL: [phone] [facility] [place] [facility] Hussain De La [place]re; Outpatient education and supportive programs for teens and adults [facility] www.[facility].org [place]; Residential treatment and work program for females only [facility] www.[facility].org [place]: Outpatient/residential treatment program for teens and young adults [facility] www.[facility].org [facility] Detox, inpatient, outpatient for adults and youth [facility]. [place]; Outpatient programs and referrals to community residential programs. Alcoholics Anonymous -SFV information and meeting and scheduleswww.aa-intergroup.org Vivien https://al-anon.org/ [place] support groups for family of alcoholics. Marijuana Anonymous www.madistrict6.org -SFV listing of meetings Narcotics Anonymous www.na.org SOBER LIVING RESOURCES [facility] www.soberhousing.net A non-profit agency that provides resources to recovery and sober living homes throughout [facility] Sober Living Homes: A Work in ProgressMatthieu [facility] Alex Ashfordarlene [place] [facility], [facility] So[facility] Living Homes: [facility] x [phone] [place], [place] [facility] Coed Sober Living Homes: [facility] Counseling--Outpatient [facility] [address] [facility] [place] [address] (Specializes in in-depth psychotherapy for emotional distress: anxiety, depression, interpersonal conflicts, life transitions, childhood abuse) [facility] [address] [place] [address] (Assist with solving problem marital difficulties, separation & divorce, aging parents, & grief, chronic & terminal illness) [facility] [address] [place] [address] (Deal with loss & grief, anxiety, marital difficulties) Homebound/Mental Health Services [address] [facility] [address] [place] [address] (Provide in-home mental services to people who are incapable of leaving their homes) [facility] Needs of the Elderly Senior Service/Resource Center [address] [place] [address] [facility] [address] [place], [place] [id number] Mental Health Services [address] [place] [address] Services: Outpatient therapy for children, teens, young adults, adults, older adults, and families; Psychiatric services, medication support Psychiatric Outpatient Services [facility] Partial Hospitalization and Intensive Outpatient Program (Managed Care and [place] Only)[address] [facility]. [facility] [phone] [facility] Partial Hospitalization and Outpatient [id number] [facility]. [address] [place], [place] [phone] V[facility] [address] [place], [place] [phone] [facility] Partial Hospitalization and Outpatient [id number] PHONG [phone] Crisis and Hotline Telephone Numbers 24-Hour service unless stated [place] Crisis Hotlines: [facility] Mental Health/Crisis Line........150.862.4236 Suicide Prevention Center (24 Hours).......100.783.6373 Suicide Prevention Crisis Center.......[phone] (24 Hours) Assaults Against Women Hotline.........315.941.2188 (24 Hours -- [facility]) Women and Children Crisis Custodial...........[phone] (24 Hours) Child Abuse Hotline............312.801.7187 [facility] (24 Hours)..........[phone] Alcoholics Anonymous (24 Hours)..........[phone] Cocaine Anonymous (24 Hours)............[phone] Narcotics Anonymous (24 Hours)..........[phone] Jacqueline Flores [facility] [address] [place] [address]
--- NOTE | 2022-01-09 11:20 | NUR ---
WOUND CARE CONSULT: PT PRESENTS WITH FACIAL WOUNDS WHICH ARE CRUSTED, PRESENT ON ADMISSION. RECOMMENDATIONS MADE FOR SKIN PROTECTION AND WOUND CARE. DISCUSSED WITH NURSING STAFF AND SURGICAL P.ATravis RAMSEY IN AGREEMENT WITH PLAN OF CARE.
[2022-01-09] MEDS ORDERED: NEOMY SULF/BACITRAC ZN/POLY 15 GM TUBE TP SCH (11:30)
--- NOTE | 2022-01-09 13:05 | NUR ---
Drug & alcohol rehab referral: SW was notified by patient's nurse that the pt. has now requested rehab for drug and alcohol use. CHAR met with pt. and their nurse at bedside. CHAR explained to pt. that SW will refer her to drug and alcohol use rehab, that it may take about a week or longer for a bed to become available and the treatment center will reach out to her. CHAR reminded pt. that she provided her with addiction resources and informed her which ones she can call to see if there is a bed available. Pt. expressed understanding and stated she will follow up. Pt. provided her cell phone number: [phone]. CHAR faxed clinicals to [facility] [FAX:[phone] PHONE:[phone]]. CHAR will remain available as needed.
--- NOTE | 2022-01-09 14:56 | NUR ---
RN note Patient was provided with discharge instructions, verbalized understanding. IV line was removed , patient left the hospital by her self stating that her girlfriend waiting for her down stairs. Patient discharged form [facility]
== END 2022-01-09 15:00 | disposition home or self-care (01) | DRG 896 ==
LOC: ER 06:30 → TRANSITION 11:57 → TELE 21:02 → MED 01-09 11:53
PROVIDERS: ADMIT Nurse Practitioner Acute Care; ATTEND Nurse Practitioner Acute Care
PROC: 0HQ1XZZ Repair Face Skin, External Approach (ICD-10-PCS; principal; 2022-01-07)
DX: F10.239 Alcohol dependence with withdrawal, unspecified (principal); G92.8 Other toxic encephalopathy; I21.4 Non-ST elevation (NSTEMI) myocardial infarction; M62.82 Rhabdomyolysis; N39.0 Urinary tract infection, site not specified; E87.2 Acidosis; E86.0 Dehydration; Z20.822 Contact with and (suspected) exposure to COVID-19; Z59.00 Homelessness unspecified; S01.511A Laceration without foreign body of lip, initial encounter; W01.0XXA Fall on same level from slipping, tripping and stumbling without subsequent striking against object, initial encounter; Y92.410 Unspecified street and highway as the place of occurrence of the external cause; E87.6 Hypokalemia; F19.10 Other psychoactive substance abuse, uncomplicated; K70.10 Alcoholic hepatitis without ascites; E83.51 Hypocalcemia; K29.20 Alcoholic gastritis without bleeding; I95.9 Hypotension, unspecified; Y90.0 Blood alcohol level of less than 20 mg/100 ml
CPT/HCPCS: 36415; 70450-TC; 70486-TC; 71045-TC; 72125-TC; 80048-TC; 80076-TC; 81001; 82140-TC; 82550-TC; 82962-TC; 83735-TC; 84100-TC; 84443-TC; 84484-TC; 84703-TC; 85025-TC; 85730-TC; 87081-TC; 90715; 93307-TC; A6403; C9803; G0378; G0480; J0360; J7030